=== PATIENT | female | born 1945 | race Caucasian/White ===

== ENCOUNTER 2022-10-13 08:49 | Inpatient (IN) | payer MEDICARE, OTHER ==
[~2022-10-13] VITALS: Ht 165.1 cm; Wt 64.6 kg
--- OUTSIDE RECORDS SUMMARY | 2022-10-13 08:52 | XMS ---
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 EGreg VISIT COUNT (12 MO.) 4 Yoel Friedman TOTAL 6 NOTE: Visits indicate total known visits. ED/UCC VISIT TRACKING (12 MO.) 10/13/2022 08:50 ISRAEL Kulkarni OR TYPE: Emergency COMPLAINT: - WEAKNESS, SLIGHT AMS 09/29/2022 23:01 ISRAEL Kulk[facility]i [facility] TYPE: Emergency COMPLAINT: - ABNORMAL LABS DIAGNOSES: - Allergy status to narcotic agent - Allergy status to other drugs, medicaments and biological substances - Atherosclerotic heart disease of [place] coronary artery without angina pectoris - Chronic kidney disease, unspecified - Disorientation, unspecified - Hypertensive chronic kidney disease with stage 1 through stage 4 chronic kidney disease, or unspecified chronic kidney disease - Latex allergy status - Other chronic pain - Pain in right hip - Poisoning by anticoagulants, accidental (unintentional), initial encounter - Presence of artificial hip joint, bilateral - Type 2 diabetes mellitus with diabetic chronic kidney disease - Unspecified atrial fibrillation 08/30/2022 16:36 Yoel [facility] TYPE: Emergency DIAGNOSES: - Elevated erythrocyte sedimentation rate - Local infection of the skin and subcutaneous tissue, unspecified - Other specified abnormal findings of blood chemistry - Type 2 diabetes mellitus with other skin complications - Unspecified open wound, right ankle, initial encounter - Followup Medical Problem - Foot Pain - Foot Wound 08/05/2022 13:40 Yoel [facility] TYPE: Emergency DIAGNOSES: - Lymphedema, not elsewhere classified - Leg Swelling 01/24/2022 09:12 Yoel [facility] TYPE: Emergency DIAGNOSES: - Pain in right thigh - Left Side Pain - Leg Pain (Non-traumatic) 01/21/2022 12:17 Yoel [facility] TYPE: Emergency DIAGNOSES: - Sacrococcygeal disorders, not elsewhere classified - Strain of muscle, fascia and tendon of right hip, initial encounter - Hip pain - Hip Pain (Non-traumatic) INPATIENT VISIT TRACKING (12 MO.) 08/30/2022 16:36 Yoel [facility] TYPE: Internal Medicine DIAGNOSES: - Elevated erythrocyte sedimentation rate - Local infection of the skin and subcutaneous tissue, unspecified - Other specified abnormal findings of blood chemistry - Spondylosis without myelopathy or radiculopathy, lumbar region - Type 2 diabetes mellitus with other skin complications - Unspecified open wound, right ankle, initial encounter [email or web address]
[2022-10-13] MEDS ORDERED: ACETAMINOPHEN500 MG PO (12:06)
[2022-10-13] MEDS ORDERED: AMIODARONE HCL200 MG PO (12:07)
[2022-10-13] MEDS ORDERED: AMLODIPINE BES2.5 MG PO (12:07)
[2022-10-13] MEDS ORDERED: LIPITOR40 MG PO (12:08)
[2022-10-13] MEDS ORDERED: CLOPIDOGREL75 MG PO (12:09)
[2022-10-13] MEDS ORDERED: DULCOLAX10 MG PR (12:10)
[2022-10-13] MEDS ORDERED: FLEET ENEMA133 ML PR (12:10)
[2022-10-13] MEDS ORDERED: FLONASE ALLERG9.9 ML NAS (12:11)
[2022-10-13] MEDS ORDERED: GLUCAGON EMERGEN1 MG IM (12:11)
[2022-10-13] MEDS ORDERED: FUROSEMIDE20 MG PO (12:11)
[2022-10-13] MEDS ORDERED: HYDRALAZINE HCL25 MG PO (12:12)
[2022-10-13] MEDS ORDERED: GLUCOSE4 GM PO (12:12)
[2022-10-13] MEDS ORDERED: KLOR-CON 1010 MEQ PO (12:12)
[2022-10-13] MEDS ORDERED: LYRICA50 MG PO (12:13)
[2022-10-13] MEDS ORDERED: LEVOTHYROXINE100 MCG PO (12:13)
[2022-10-13] MEDS ORDERED: LIDOCAINE PAIN1 EACH TOP (12:13)
[2022-10-13] MEDS ORDERED: METOPROLOL SUCC50 MG PO (12:14)
[2022-10-13] MEDS ORDERED: METFORMIN HCL500 MG PO (12:14)
[2022-10-13] MEDS ORDERED: MILK OF MA400 MG/5 M PO (12:14)
[2022-10-13] MEDS ORDERED: OMEPRAZOLE20 MG PO (12:14)
[2022-10-13] MEDS ORDERED: PEPCID AC20 MG PO (12:15)
[2022-10-13] MEDS ORDERED: TRAMADOL HCL50 MG PO (12:16)
[2022-10-13] MEDS ORDERED: VITAMIN C1000 MG PO (12:16)
[2022-10-13] MEDS ORDERED: VOLTAREN ARTHRI20 GM TOP (12:16)
--- NOTE | 2022-10-13 13:00 | NUR ---
THIS RN DOWN TO ED TO RECEIVE BEDSIDE REPORT. BEDSIDE REPORT REVEIVED FROM KEITH ALLEN. YUMIKO RN AND THIS ACCOUNTING INTERN PT TO MS FLOOR ROOM 112. KEITH LUCERO, YUMIKO, RN AND THIS RN PULL PT WITH SLIDE SHEET FROM STRETCHER TO HOSPITAL BED. VITALS COMPLETE. BED WEIGHT COMPLETE. BED ALARM ON. CALL LIGHT IN REACH.
[2022-10-13 13:24] VITALS: BP 112/46
--- NOTE | 2022-10-13 13:36 | NUR ---
ASSESSMENT COMPLETE. LUNG SOUNDS CLEAR. BOWEL TONES ACTIVE. RIGHT PEDAL PULSE FAINT. LEFT PEDAL PULSE STRON. BRUISE TO LEFT UPPER ARM NOTED. BRUISE TO RIGHT FOOT NOTED. WOUND TO RIGHT FOOT NOTED. ALLEVYN PLACED. SCAB NOTED TO RIGHT FOOT. REDDENED AREA NOTED TO GLUTEAL AREA. ANITA RN IN WITH 2 RN SKIN ASSESSMENT. PT A&O TO SELF AND . ASKED PT WHERE PT IS AND PT STATES "[place]." INFORMED PT SHE IS IN [place]. PT THEN ASKS WHERE SHE IS AND THIS RN INFORMS PT SHE IS AT [facility] IN [place], [place]. ASKED PT WHAT THE MONTH IS AND PT STATES "OCTOBER." ASKED PT WHAT YEAR IT IS AND PT STATES ". . . NO 2022." PT DENIES ANY PAIN WHEN ASKED ABOUT PAIN. FLACC SCORE OF 0 NOTED. BG CHECKES AND BLOOD SUGAR OF 78 NOTED. PT IN BED WITH BED ALARM ON. CALL LIGHT IN REACH.
--- NOTE | 2022-10-13 15:51 | NUR ---
IN TO ROUND ON PT. PT LAYING ON LEFT SIDE. PT RESPONDS WHEN ADDRESSED. RR EVEN AND UNLABORED. IV REMOVED FROM LEFT AC DUE TO LEAKING. GAUZE AND COBAN PLACED AROUND SIDE. IV REMOVED WNL. PT CONTINUES TO REST IN BED. EYES CLOSED RR EVEN AND UNLABORED. NO OTHER NEEDS IDENTIFIED AT THIS TIME. CALL LIGHT IN REACH. BED ALARM ON.
--- NOTE | 2022-10-13 16:45 | NUR ---
RECEIVED REPORT. ROUNDED ON PT. CHANGED PT DONAVON. DISCUSSED PRN TYLENOL FOR PAIN WITH .
--- NOTE | 2022-10-13 16:55 | NUR ---
ATTEMPT TO COMPLETE ASSESSMENT. PATIENT DOES NOT OPEN EYES AND TALK WHEN ACKNOWLEDGED. STAFF THEN ENTER TO COMPLETE CARES AT THIS TIME. KNOWN TO BE FROM [facility]. MESSAGE SENT TO NARCISO AT [facility] TO VERIFY INFORMATION AFTER CALL WENT TO VOICEMAIL. PATIENT IS FROM [facility] AND HAS BEEN ADMITTED FOR ALTERED MENTAL STATUS, POSSIBLE METABOLIC ACIDOSIS WITH ENCEPHALOPATHY. NIECE IS IN CHART CONTACT. POLST FORM ON CHART IS FOR DNR/LIMITED TREATMENT. UNABLE TO VERIFY OTHER INFORMATION AT THIS TIME.
[2022-10-13 17:54] VITALS: BP 107/44
--- NOTE | 2022-10-13 20:00 | NUR ---
Pt asseded at begining of shift. Alert to self and knows she is in a hospital, responds to pain and tells us to stop messing with her during brief changes. Had 2 loose BMs.
[2022-10-13 20:24] VITALS: BP 128/60
--- NOTE | 2022-10-13 22:17 | NUR ---
corn cutter operator tiffany in room to complete wound care consult. malt house supervisor jet hernandez.
--- NOTE | 2022-10-13 23:08 | NUR ---
WOUND CARE CONSULT- R LATERAL FOOT ULCER REVIEWED CHART AND PATIENT'S MEDICATIONS AND MEDICAL HISTORY. NOTED INR ELEVATED. INTO ROOM PATIENT RESTING, APPEARS CALM. TURNED LIGHTS ON, PATIENT ABLE TO MUMBLE WORDS, WHEN ASKING QUESTIONS STARTS TALKING ABOUT MOTHER. EXPLAINED TO PATIENT OUT LOUD PLAN OF CARE FOR WOUND CONSULT. PRIMARY NURSE RHIANNA AT BEDSIDE TO ASSIST. REMOVED OLD DRESSING, CLEANSED WITH WOUND CLEANSER. WOUND BASE APPEARS CLEAN, NOTED PATIENT STARTED TO OOZE BLOOD WITH WITH PRESSURE OF WOUND CLEANSER TO WOUND BASE. APPLIED GAUZE, BLEEDING SUBSIDED. WOUND MEASURES 1CM X 2CM X 0.30 CM, WOUND EDGES SLIGHTLY ROLLED. BRAEDEN SKIN VIABLE WITH 1+ EDEMA, COOL TO TOUCH. APPLIED SKIN PREP TO BRAEDEN-WOUND. APPLIED MEDIHONEY TO WOUND BASE, PATIENT APPEARED TO TOLERATE WELL. THEN APPLIED FOAM BORDER WITH GENTLE ADHESIVE BORDER SECONDARY DRESSING. APPLIED COMPRESSION SOCKS, AND ELVATED HEALS ON PILLOW TO OFFLOAD PRESSURE TO HEALS. DRESSING TO BE CHANGED EVERY THREE DAYS, UPDATED PRIMARY NURSE ON POC.
--- NOTE | 2022-10-14 | NUR ---
Right foor wound cleansed and chnaged by wound nurse.
[2022-10-14 01:31] VITALS: BP 117/62
[2022-10-14 05:40] VITALS: BP 118/54
--- NOTE | 2022-10-14 06:11 | NUR ---
PT overall did fair overnight. Still confused , alert to self and knows she is in the hospital. Tolerated PO fluids and small pills which makes it easy to swallow. Had 3 episodes of diarhea.
--- NOTE | 2022-10-14 07:29 | NUR ---
RECIEVED SHIFT REPORT. PT RESTING IN BED, EYES CLOSED, BREATHING EVEN AND UNLABORED. CALL LIGHT IN REACH.
[2022-10-14 09:38] VITALS: BP 119/54
--- NOTE | 2022-10-14 10:30 | NUR ---
MORNING ASSESSMENT COMPLETE. DROWSY, AROUSABLE WITH SOUND. PT WAS ABLE TO VERBALIZE NAME AND . FLACC SCALE- 4, SCHEDULED PAIN PATCH APPLIED. PT REQUIRED ENCOURAGEMENT WITH TAKING PILLS, BUT TOLERATED WELL. ALLEVYN APPLIED TO COCCYX TO PREVENT PRESSURE INJURY. PT CLEANED AND BRIEF CHANGED LAYING ON RIGHT SIDE, WITH PILLOWS FOR SUPPORT. CALL LIGHT IN REACH.
--- NOTE | 2022-10-14 11:46 | NUR ---
PT IN BED WITH EYES CLOSED. DID NOT RESPOND TO MY KNOCK. DID NOT DISTURB. PRAYED FROM HALLWAY.
--- NOTE | 2022-10-14 12:00 | NUR ---
REPORT RECEIVED FROM KEITH DUVAL. PT RESTING IN BED WITH EYES CLOSED. RR EVEN AND UNLABORED. NO NEEDS IDENTIFIED AT THIS TIME. CALL LIGHT IN REACH. BED ALARM ON.
--- NOTE | 2022-10-14 12:30 | NUR ---
CLERK MANAGER ASSISTED PT TO BEDSIDE COMMODE. THE PT OXYGEN SATURATION DECREASED TO 83% ON 6 LITERS. PT APPEARED WEAK AND UNSTEADY. CLERK MANAGER ASSISTED PT BACK TO BED. NURSE NOTIFIED OF PT STATUS. PT OXYGEN SATURATION INCREASED TO 91% WHEN OXYGEN WAS INCREASED. PT DID NOT VOID. PT DRANK SOME WATER AND ENSURE. PT ASSISTED INTO PERSONAL CLOTHES FOR DISCHARGE. CALL LIGHT WITHIN REACH.
[2022-10-14] MEDS ORDERED: TRAMADOL HCL50 MG PO (12:32)
--- NOTE | 2022-10-14 12:35 | NUR ---
IN TO START NEW BAG OF IV FLUIDS, SEE MAR. PT CONTINUES TO REST IN BED WITH EYES CLOSED. RR EVEN AND UNLBORED. NO OTHER NEEDS IDENTIFIED AT THIS TIME. CALL LIGHT IN REACH. BED ALARM ON.
[2022-10-14 13:21] VITALS: BP 112/73
--- NOTE | 2022-10-14 14:37 | NUR ---
IN TO ROUND ON PT. PT STATES "DON'T COME IN HERE BY YOURSELF." PT KEEPS EYES CLOSED WHILE TALKING. INFORMED PT THIS RN KNOCKED BEFORE ENTERING ROOM AND PT STATES "I DIDN'T HEAR IT." ASSESSMENT COMPLETE. LUNG SOUNDS CLEAR. BOWEL TONES ACTIVE. PT REPORTS PAIN IN RIGHT KNEE, BUT UNABLE TO GIVE THIS RN A PAIN SCORE WHEN ASKED. FLACC SCORE OF 0 NOTED. PT A&O TO NAME. ASKED PT WHAT PTs BIRTHDAY IS AND PT STATES "[birth year]." ASKED PT WHAT YEAR PT WAS BORN IN AND PT STATES "." ASKED PT WHAT MONTH IT IS AND PT STATES "JANUARY." INFORMED PT IT IS OCTOBER. ASKED PT WHAT YEAR IT IS AND PT DOES NOT ANSWER. PT OPENS EYES WHEN ASKED, THEN CLOSES THEM. PT KEEPS EYES CLOSED. PT CONTINUES TO REST IN BED WITH EYES CLOSED. RR EVEN AND UNLABORED. NO OTHER NEEDS IDENTIFIED AT THIS TIME. CALL LIGHT IN REACH. BED ALARM ON.
--- NOTE | 2022-10-14 14:52 | NUR ---
PATIENT HAS BEEN SLEEPING MOST OF THE DAY. UNABLE TO DISCUSS THE DISCHARGE PLAN. PATIENT IS FROM [facility]. CASE MANAGEMENT WILL SEND UPDATED CHART NOTES TO [facility].
--- NOTE | 2022-10-14 15:08 | NUR ---
IN TO ADMINISTER PRN PAIN MEDICATION, SEE MAR. PT TAKES PO MEDICATION ONE AT A TIME WITH SIP OF WATER WITH NO ISSUES. FLACC SCORE OF 4 NOTED. IV DRESSING TO R AC CHANGED. PT CONTINUES TO REST IN BED WITH EYES CLOSED. RR EVEN AND UNLABORED. PT WILL OPEN EYES AND ANSWER SOME QUESTIONS WHEN ASKED. NO OTHER NEEDS IDENTIFIED AT THIS TIME. CALL LIGHT IN REACH. BED ALARM ON.
--- NOTE | 2022-10-14 16:45 | NUR ---
IN TO ROUND ON PT. BG CHECK COMPLETE. PT INCONTINENT OF URINE. KEITH LUCERO IN TO ASSIST WITH BRAEDEN-CARE. BRAEDEN-CARE PERFORMED. NEW ATTENDS IN PLACE. NEW GOWN PLACED. PT STATES "JUST LEAVE ME ALONE, GO AWAY." VITALS AND I&Os COMPLETE. ASKED PT IF PT WOULD LIKE SOME OF THEIR DINNER AND PT STATES "NO, JUST GO AWAY." DINNER TRAY AT BEDSIDE. CALL LIGHT IN REACH. BED ALARM ON. NO OTHER NEEDS FROM THIS RN AT THIS TIME.
[2022-10-14 16:55] VITALS: BP 113/55
[2022-10-14 20:55] VITALS: BP 122/55
--- NOTE | 2022-10-14 20:56 | NUR ---
Pt assesed. Alert to self, able to tell me name and . Still slow to respond. WIll continue to monitor.
--- NOTE | 2022-10-14 23:51 | NUR ---
PT looks comfortable, answers questions asked. Brief dry. WIll continue to monitor.
--- NOTE | 2022-10-15 01:31 | NUR ---
CHanged pt brief, was screaming while she was being changed says her hips hurt. Offered tylenol , pt refused. PT is alert and talkative but confused. WIll continue to monitor.
[2022-10-15 05:34] VITALS: BP 136/52
--- NOTE | 2022-10-15 05:41 | NUR ---
Checked pt for incontinence, brief was dry. Pt was offered tylenol for her pain, and levothyroxine and pt refused both. Pt has been more talkative and alert but confused.
--- NOTE | 2022-10-15 07:25 | NUR ---
RECEIVED REPORT FROM [facility] NURSE. PT APPEARS TO BE SLEEPING COMFORTABLY. RESPIRATIONS EVEN AND REGULAR.
[2022-10-15 07:59] VITALS: BP 127/64
--- NOTE | 2022-10-15 08:15 | NUR ---
PT ASSESSMENT AND MEDICATION ADMINISTRATION COMPLETED. PT IS CONFUSED BUT TAKES MEDICATIONS WITH ENCOURAGEMENT. IV FLUIDS RUNNING. CALL LIGHT WITHIN REACH.
--- NOTE | 2022-10-15 12:03 | NUR ---
PT REFUSED LUNCH. ASSISTED DINKEY OPERATOR WITH ATTENDS AND LINEN CHANGE.
--- NOTE | 2022-10-15 13:43 | NUR ---
REQUEST FOR RECORDS SENT TO [facility]. PT UNABLE TO SIGN AUTHORIZATION FOR RELEASE OF RECORDS DUE TO MENTAL STATUS, CALL PLACED TO ADEOLA JUNE (NIECE), VERBAL CONSENT FOR RELEASE OF RECORDS.
[2022-10-15 14:46] VITALS: BP 137/61
--- NOTE | 2022-10-15 15:41 | NUR ---
assisted pt to turn and allevens on coccyx changed. MD visualized coccyx. attends and purewick in place. pt is much more alert and conversive. facial edema has disipated. iv fluids running. call light within reach.
[2022-10-15 18:00] VITALS: BP 115/51
--- NOTE | 2022-10-15 18:03 | NUR ---
REPOSITIONED PT. I/O'S AND VS COMPLETED. ASSISTED PT WITH TELEVISION CONTROLS. CALL [facility] WITHIN REACH.
--- NOTE | 2022-10-15 19:19 | NUR ---
REPORT RECEIVED FROM DAY SHIFT RN. PT LYING IN BED ALERT. ASSISTED TO REPOSITION. SIPS OF WATER PROVIDED. NO FURTHER NEEDS. WHITE BOARD UPDATED. CALL LIGHT IN REACH. BED ALARM FOR SAFETY.
[2022-10-15 21:20] VITALS: BP 136/55
--- NOTE | 2022-10-15 21:34 | NUR ---
EVENING ASSESSMENT COMPLETE. BLOOD SUGAR CHECK WNL. PT ALERT AND TALKATIVE. ORIENTED TO SELF. IVF INFUSING PER ORDER. NEW PUREWICK PLACED AFTER BRAEDEN CARE DONE. ALLEVYN TO YENNIFER CDI. 2PA TO REPOSITION IN BED. HEELS FLOATED ON PILLOW. TEDS IN PLACE. PT DENIES QUESTIONS OR CONCERNS. CALL LIGHT IN REACH.
--- NOTE | 2022-10-15 23:56 | NUR ---
PT RESTING IN BED ON LEFT SIDE WITH EYES CLOSED. RESPIRATIONS EVEN. CALL LIGHT IN REACH. BED ALARM FOR SAFETY.
[2022-10-16] VITALS (7 sets, daily range): BP systolic 124–157; BP diastolic 54–68
--- NOTE | 2022-10-16 01:00 | NUR ---
PT CALLING OUT. IN ROOM TO ASSIST. ASSISTED TO REPOSITION. HEEL PROTECTORS PLACED. PRN FOR REPORTS OF BACK PAIN ADMIN PER EMAR. ASSISTED WITH SIPS OF WATER. NO FURTHER NEEDS. CALL LIGHT IN REACH.
--- NOTE | 2022-10-16 03:14 | NUR ---
PT RESTING IN BED WITH EYES CLOSED. RESPIRATIONS EVEN. CALL LIGHT IN REACH.
--- NOTE | 2022-10-16 06:02 | NUR ---
VS AND I&O OBTAINED. ASSESSMENT UNCHANGED. PT INCONTINENT OF SMALL AMOUNT SOFT BROWN BM. BRAEDEN CARE DONE. CLEAN ATTENDS PLACED. NEW PUREWICK IN PLACE. PT PAINFUL WITH MOVEMENT AND ABLE TO MINIMALLY ASSIST IN CARES OR TURN IN BED. REPOSITIONED WITH PILLOWS. HEEL PROTECTORS IN PLACE. SCHEDULED MEDS ADMIN PER EMAR. BED ALARM IN PLACE. CALL LIGHT IN REACH.
--- NOTE | 2022-10-16 07:28 | NUR ---
REPORT RECEIVED FROM NIGHT RN - PT AWAKES EASILY UPON ENTERING ROOM, CONFUSED AND NOT ORIENTED TO PLACE AND SITUATION. STATES SHE "HURTS LIKE HELL". BED ALARM ON.
--- NOTE | 2022-10-16 09:00 | NUR ---
ASSESSMENT COMPLETE - PT RESTING IN BED, DROWSY BUT WAKES EASILY. ORIENTED TO SELF ONLY, REDIRECTABLE WHEN ANSWERING ORIENTATION QUESTIONS WRONG. PT UNSATISFIED WITH BREAKFAST SERVED, INADEQUATE FOOD INTAKE HISTORICALLY AND ONLY DRINKS DIET COKE. BREAKFAST SANDWHICH PROVIDED FROM [employer] PER PT REQUEST. PURWIK IN PLACE AND WORKING APPROPRIATLY. TYLENOL ADMINISTERED FOR 5/10 PAIN, PT UNABLE TO DESCRIBE BUT SEEMS TO BE PAINFULL ALL OVER WITH TOUCH. ABLE TO SWALLOW SCHEDULED MEDICATIONS WITHOUT DIFFICULTY.
--- NOTE | 2022-10-16 09:20 | NUR ---
PT REPOSITIONED TO LEFT SIDE WITH PILLOWS, ALL EXTREMETIES FLOATED. PT TOLERATED WITH MODERATE PAIN AND YELLING. LIDOCAINE PATCH PLACED ON MID BACK. CALL LIGHT IN REACH.
--- NOTE | 2022-10-16 10:55 | NUR ---
RN ROUNDING ON PT - RESTING IN BED ASLEEP BUT WAKES EASILY FOR SCHEDULED MEDICATIONS. PT ATE ORANGE SLICES FROM BREAKFAST AND 2 BITES OF BREAKFAST SANDWHICH. STATES SHE LIKES TO EAT "FRESH" FOOD, ORDER FOR SALAD AT LUNCH PLACED, PT SEEMED EXCITED BY THIS.
--- NOTE | 2022-10-16 12:15 | NUR ---
RECEIVED REPORT FROM YORDAN PARKER. ROUNDED ON PT. REPOSITIONED PT AND ASSISTED PT WITH MEAL. PT REPORTS PAIN WHILE REPOSITIONING HER. PT GOWN CHANGED AND CALL LIGHT WITHIN REACH. NO FURTHER NEEDS VOICED BY THE PATIENT.
--- NOTE | 2022-10-16 14:15 | NUR ---
INITIATED BLOOD TRANSFUSION. PT REFUSING REPOSITION AT THE TIME. EDUCATED PT ON BENEFITS OF BEING REPOSITIONED AND RISKS FOR REFUSING. PTS CALL LIGHT WTIHIN REACH AND NO FURTHER NEEDS VOICED AT THE TIME
--- NOTE | 2022-10-16 17:49 | NUR ---
ROUNDED ON PT. PT STILL REFUSING TO BE REPOSITIONED. PT STATES SHE ALWAYS LIES ON HER LEFT SIDE AND IS NOT COMFORTABLE WITH ANY OTHER POSITION. PT EDUCATION REINFORCED. PT STILL REFUSING TO BE REPOSITIONED AFTER EDUCATION.
--- NOTE | 2022-10-16 19:21 | NUR ---
REPORT RECEIVED FROM DAY SHIFT RN. PT LYING IN BED ALERT WATCHING TV. NO NEEDS AT THIS TIME. WHITE BOARD UPDATED. CALL LIGHT IN REACH.
--- NOTE | 2022-10-16 20:42 | NUR ---
EVENING ASSESSMENT COMPLETE. SCHEDULED MEDS ADMIN PER EMAR. PRN FOR GENERALIZED PAIN ADMIN. PUREWICK REPLACED AFTER BRAEDEN CARE DONE. 2PA TO REPOSITION IN BED. PT PAINFUL TO MOVE, UNABLE TO ASSIST MUCH WITH CARES. LEGS ELEVATED ON PILLOWS. PERSONAL ITEMS WITHIN REACH. PT DENIES FURTHER NEEDS. BED ALARM FOR SAFETY. CALL LIGHT IN REACH.
--- NOTE | 2022-10-16 23:35 | NUR ---
CALL LIGHT ANSWERED. PT REPORTS -10/10 CRUSHING CHEST PAIN, STATES "I JUST DON'T FEEL RIGHT." VS WNL. NOTIFIED. NEW TELEPHONE ORDERS RECEIVED VERIFIED [facility] READBACK METHOD. RT IN ROOM FOR EKG. BLOOD SENT TO LAB FROM .. IV IN RIGHT UPPER ARM. PT REPOSITIONED PER REQUEST. REPORTS SX IMPROVING. CALL LIGHT IN REACH. BED ALARM FOR SAFETY.
--- NOTE | 2022-10-17 01:56 | NUR ---
PT RESTING IN BED WITH EYES CLOSED. RESPIRATIONS EVEN. CALL LIGHT IN REACH.
--- NOTE | 2022-10-17 04:02 | NUR ---
PT CALLING OUT. IN ROOM TO ASSIST. PT PULLED IV FROM RIGHT WRIST. TIP INTACT. LINENS AND GOWN CHANGED. SKIN CLEANSED. IV TUBING REPLACED. IVF INFUSING IN UPPER RIGHT ARM WNL. ASSESSMENT COMPLETE. PT A&O X 3. REPOSITIONED WITH PILLOWS. NO FURTHER NEEDS. CALL LIGHT IN REACH.
[2022-10-17 05:28] VITALS: BP 149/69
--- NOTE | 2022-10-17 05:58 | NUR ---
VS AND I&O OBTAINED. SCHEDULED MEDS ADMIN PER EMAR. PRN FOR GENERALIZED PAIN ADMIN. PT INCONTINENT OF LARGE AMOUNT OF URINE AROUND PUREWICK. BRAEDEN CARE DONE. CLEAN ATTENDS AND PUREWICK IN PLACE. 2PA TO REPOSITION TO RIGHT SIDE WITH PILLOWS. HEELS FLOATED ON PILLOW. PT DENIES FURTHER NEEDS. CALL LIGHT IN REACH.
--- NOTE | 2022-10-17 07:09 | NUR ---
RECEIVED REPORT FROM SKYLER PARKER. PT SLEEPING IN BED WITH EYES CLOSED. HOB LESS THAN 30 DEGREES. RESPIRATIONS EVEN AND REGULAR. CALL LIGHT WITHIN REACH.
[2022-10-17 08:44] VITALS: BP 151/64
--- NOTE | 2022-10-17 09:27 | NUR ---
ENTERED PATIENTS ROOM FOR SCHEDULED MEDICATIONS AND WOUND DRESSING CHANGE ON RIGHT FOOT. PT REPORTS PAIN 8/10. MD DID NOT ADD ADDITIONAL MEDICATIONS DUE TO POLYPHARMACY CONCERNS. PT REPOSITIONED AND SET UP TO EAT MEAL. CALL LIGHT WITHIN REACH AND NO FURTHER NEEDS VOICED.
--- NOTE | 2022-10-17 10:30 | NUR ---
ROUNDED ON PATIENT WITH PT. INCONTINENCE OF XL BM. CHANGED PATIENT ALONG WITH COMPLETE LINNEN CHANGE. STOOT PATIENT UP WITH PHYSICAL THERAPIST. PATIENT REPOSITIONED BACK IN BED NEW PUREWICK APPLIED. CALL LIGHT WITHIN REACH AND BED ALARM ON. NO FURTHER NEEDS VOICED BY THE PATIENT.
--- NOTE | 2022-10-17 13:00 | NUR ---
PT IN BED NOT MOVING AND TURNED AWAY FROM DOORWAY. DID NOT ROUSE TO MY KNOCK. DID NOT DISTURB. PRAYED FROM [place].
[2022-10-17 13:39] VITALS: BP 151/73
--- NOTE | 2022-10-17 13:49 | NUR ---
IN TO DO VITALS AND I&O'S. VITALS AND I&O'S CHARTED. PATIENT REPOSITIONED ON TO RIGHT SIDE WITH PILLOWS UNDER LEFT HIP. CALL LIGHT IN REACH. NO FURTHER NEEDS AT THIS TIME.
[2022-10-17 14:56] VITALS: BP 150/61
[2022-10-17] MEDS ORDERED: SODIUM BICARBO650 MG PO (15:29)
[2022-10-17 18:19] VITALS: BP 150/61
--- NOTE | 2022-10-17 19:33 | NUR ---
REPORT RECEIVED FROM DAY SHIFT RN. PT LYING IN BED WITH EYES CLOSED. RESPIRATIONS EVEN. CALL LIGHT IN REACH.
[2022-10-17 19:59] VITALS: BP 155/69
--- NOTE | 2022-10-17 20:05 | NUR ---
CALL LIGHT ANSWERED. PT INCONTINENT OF MEDIUM AMOUNT SOFT BM. BRAEDEN CARE DONE. CLEAN ATTENDS AND PUREWICK PLACED. BARRIER CREAM APPLIED TO BRAEDEN AREA FOR C/O SORENESS. REDNESS NOTED. SKIN INTACT. 2PA TO REPOSITION IN BED. PT SL PER ORDER. NO FURTHER NEEDS. CALL LIGHT IN REACH.
--- NOTE | 2022-10-17 21:22 | NUR ---
EVENING ASSESSMENT COMPLETE. SCHEDULED MEDS ADMIN PER EMAR. BLOOD SUGAR WNL. PRN FOR 11/10 BACK/HIP PAIN ADMIN PER. PT REPOSITIONED WITH PILLOWS. HEELS FLOATED ON PILLOWS. PT A&O X 3. PT DENIES QUESTIONS OR CONCERNS. CALL LIGHT IN REACH.
--- NOTE | 2022-10-17 21:48 | NUR ---
CALL LIGHT ANSWERED. pt ASSISTED WITH TV. REQUESTED PILLOW BE REMOVED FROM UNDER LEGS, REMOVED PER REQUEST. CALL LIGHT IN REACH.
--- NOTE | 2022-10-17 22:28 | NUR ---
PT REPORTS CONTINUED PAIN AFTER PRN ADMIN. 2PA TO REPOSITION PT WITH PILLOWS. PT AGREES SHE IS COMFORTABLE AT THIS TIME. NO FURTHER NEEDS.
--- NOTE | 2022-10-18 00:51 | NUR ---
PT RESTING IN BED WITH EYES CLOSED. RESPIRATIONS EVEN. CALL LIGHT IN REACH.
--- NOTE | 2022-10-18 01:00 | NUR ---
CALL LIGHT ANSWERED. PT "UNCOMFORTABLE." 2PA TO REPOSITION IN BED WITH PILLOWS. HEELS PROTECTORS APPLIED. NO FURTHER NEEDS.
--- NOTE | 2022-10-18 04:32 | NUR ---
PT REPOSITIONED IN BED TO LEFT SIDE WITH PILLOWS. ATTENDS DRY. MANUEL PATENT. PRN ADMIN FOR 11/10 BACK/HIPS/RIGHT LEG PAIN. ASSESSMENT UNCHANGED. NO FURTHER NEEDS. CALL LIGHT IN REACH.
[2022-10-18 06:24] VITALS: BP 146/65
--- NOTE | 2022-10-18 07:46 | NUR ---
PATIENT RESTING IN BED WITH EYES CLOSED. BEDSIDE REPORT WITH WASHATERIA ATTENDANT NURSE. PURE WIC IN PLACE. PATIENT APPEARS TO HAVE NO NEEDS AT THIS TIME.
--- NOTE | 2022-10-18 08:00 | NUR ---
Contacted NARCISO and confirmed this pt may return today. He would prefer 1 pm.
--- NOTE | 2022-10-18 09:00 | NUR ---
Spoke with Dr. Chinchilla in 829 meeting. He will complete dc and I will fax orders when completed.
--- NOTE | 2022-10-18 10:00 | NUR ---
PATIENT REPOSITONED TO RIGHT SIDE WITH PILLOWS. PATIENT APPEARS COMFORTABLE, STATES " I FEEL COMFORTABLE". PERSONAL BELONGINGS WITHIN REACH. NO OTHER NEEDS AT THIS TIME.
[2022-10-18 10:40] VITALS: BP 147/68
--- NOTE | 2022-10-18 11:00 | NUR ---
Faxed orders, PASRR, emar, H&P, DC summary to NARCISO. EMS transport set for 1 pm.
--- NOTE | 2022-10-18 13:30 | NUR ---
NOtified by EMS, they are running late, transport will be around 14;30. Charge nurse and NARCISO at [facility] notified. Called and spoke with pts daughter as pt is unable to sign IMM letter. Letter sent to daughter.
[2022-10-18 13:37] VITALS: BP 155/80
--- NOTE | 2022-10-18 13:49 | NUR ---
PT IN BED. BREAKFAST TRAY WAS BY DOOR. PT ASKED FOR TRAY TO BE BROUGHT WITHIN REACH AND TO BE PROVIDED WITH ITEMS FOR WASHING. I INFORMED BREAKDOWN WORKER OF REQUEST.
--- NOTE | 2022-10-18 15:16 | NUR ---
PROVIDED REPORT TO JORGE PARKER AT [facility]. PROVIDED NURSE TO NURSE HANDOVER ANSWERING QUESTIONS AND CONCERNS. PROVIDED UPDATES WITH CHANGES WITH PATIENT MEDICATION REGIME. PATIENT THEN TRANSPORTED BY EMS TO [facility].
--- NOTE | 2022-10-18 21:46 | EKG ---
[facility] [address] [facility] [place] [address] Signed Accelerated Junctional rhythm Low voltage QRS Abnormal ECG No previous ECGs available Confirmed by Mirlande Blake MD () on 10/18/2022 9:45:57 PM Electronically Signed By: MIRLANDE BLAKE MD 10/18/22 2146 PATIENT NAME: MARLON JUNE Electrocardiogram DATE OF : 45 PHYSICIAN: MIRLANDE BLAKE MD REPORT #: [id number] REPORT IS CONFIDENTIAL AND NOT TO BE RELEASED WITHOUT AUTHORIZATION
--- NOTE | 2022-10-20 08:55 | NUR ---
IMM letter sent certified to pts daughter, Rita Gallardo.
== END 2022-10-18 15:05 | DRG 640 ==
LOC: ED 08:49 → MS 12:37
PROVIDERS: ADMIT Family Medicine; ATTEND Family Medicine
PROC: 30233N1 Transfusion of Nonautologous Red Blood Cells into Peripheral Vein, Percutaneous Approach (ICD-10-PCS; principal; 2022-10-18)
DX: E87.20 Acidosis, unspecified (principal); G93.41 Metabolic encephalopathy; D68.32 Hemorrhagic disorder due to extrinsic circulating anticoagulants; D68.9 Coagulation defect, unspecified; T45.515A Adverse effect of anticoagulants, initial encounter; I12.9 Hypertensive chronic kidney disease with stage 1 through stage 4 chronic kidney disease, or unspecified chronic kidney disease; E11.22 Type 2 diabetes mellitus with diabetic chronic kidney disease; N18.9 Chronic kidney disease, unspecified; Z86.19 Personal history of other infectious and parasitic diseases; I48.91 Unspecified atrial fibrillation; I25.10 Atherosclerotic heart disease of native coronary artery without angina pectoris; M54.30 Sciatica, unspecified side; Z66 Do not resuscitate; E78.5 Hyperlipidemia, unspecified; E03.9 Hypothyroidism, unspecified; M19.90 Unspecified osteoarthritis, unspecified site; D63.1 Anemia in chronic kidney disease; E87.6 Hypokalemia; K21.9 Gastro-esophageal reflux disease without esophagitis; Z95.5 Presence of coronary angioplasty implant and graft; Z90.49 Acquired absence of other specified parts of digestive tract; Z96.643 Presence of artificial hip joint, bilateral; Z96.611 Presence of right artificial shoulder joint; Z90.10 Acquired absence of unspecified breast and nipple; Z88.5 Allergy status to narcotic agent; Z88.8 Allergy status to other drugs, medicaments and biological substances; Z91.040 Latex allergy status; Z79.01 Long term (current) use of anticoagulants; Z79.51 Long term (current) use of inhaled steroids; Z79.890 Hormone replacement therapy; Z79.84 Long term (current) use of oral hypoglycemic drugs; Z87.440 Personal history of urinary (tract) infections; Z87.19 Personal history of other diseases of the digestive system
CPT/HCPCS: 36415; 36600; 70450; 80053; 81001; 82140; 82803; 83605; 84443; 84484; 85025; 85027; 85610; 86850; 86900; 86901; 86922; 93005; 93010; 97162; 97530; A9270; G0480; J1650; J3430; J7030; J7040; P9016